=== PATIENT | male | born 2000 ===

== ENCOUNTER 2019-10-16 23:21 | Inpatient (IN) | payer BC, SELFPAY ==
[2019-10-16 23:32] VITALS: BP 131/77; PULSE 73; RESP 16; TEMP 36.8; O2SAT 100; BMI 19.3
[2019-10-16] MEDS: ziprasidone 20 mg/mL SDV IM (23:50)
[2019-10-17 00:18] LABS: Basophils % 0.7 %; Eosinophils # 0.2 10^3/uL (0.0-0.8); Eosinophils % 4.1 %; Hematocrit 39.9 % (42.0-52.0); Hemoglobin 13.7 g/dL (11.7-16.6); Lymphocytes # 1.1 10^3/uL (1.5-6.5); Lymphocytes % 19.3 %; Mean Corpuscular HGB Conc 34.3 g/dL (30.0-36.0); Mean Corpuscular Hemoglobin 28.5 pg (28.0-34.0); Mean Platelet Volume 10.1 fL (7.4-10.4); Monocytes # 0.4 10^3/uL (0.2-0.9); Monocytes % 7.6 %; Neutrophils # 3.94 10^3/uL (1.8-8.0); Neutrophils % 68.1 %; Nucleated Red Blood Cells % 0 %; Platelet Count 283 10^3/cmm (130-400); Red Blood Count 4.81 10^6/uL (4.1-5.3); Red Cell Distribution Width 11.9 % (12.1-15.1); White Blood Count 5.8 10^3/uL (4.5-13.0)
[2019-10-17 00:36] LABS: Alanine Aminotransferase 12 U/L (0-41); Albumin Level 4.4 g/dL (3.5-5.2); Alkaline Phosphatase 70 IU/L (40-130); Anion Gap 12.1 (5-19); Aspartate Amino Transferase 23 U/L (0-40); Blood Urea Nitrogen 14 mg/dL (6-20); Calcium 9.5 mg/dL (8.5-10.5); Carbon Dioxide 25 mmol/L (22-29); Chloride 107 mmol/L (98-107); Globulin 1.9 g/dL (1.3-4.6); Glomerular Filtration Rate 107.6 mL/min (90-130); Glucose 92 mg/dL (65-115); Osmolality Calculated 286 mOsm/kg (285-295); Potassium 4.1 mmol/L (3.5-5.1); Sodium 140 mmol/L (136-145); Total Bilirubin 0.3 mg/dL (0.15-1.2); Total Protein 6.3 g/dL (6.6-8.7)
[2019-10-17 00:51] LABS: Acetaminophen < 5.0 ug/mL (10-30); Alcohol Level < 10 mg/dL (0-10); Salicylate < 0.3 mg/dL (3-10)
[2019-10-17 03:26] VITALS: BP 115/74; PULSE 71; RESP 17; TEMP 36.6; O2SAT 97
[2019-10-17 03:28] VITALS: BP 122/70; PULSE 76; RESP 14; O2SAT 96
[2019-10-17 03:29] VITALS: RESP 16
--- NOTE | 2019-10-17 04:04 | ED_ITS ---
HPI - Psych General: Chief Complaint: Psychiatric Symptoms Stated Complaint: MHE Time Seen by Provider: 10/16/19 23:37 History of Present Illness: HPI Narrative: 18-year-old with feelings of anger. He denies specific homicidal thoughts, but is very vague about his anger. He denies suicidal ideation currently. He wants to be evaluated in the NPU, because he is very angry. He gives the impression that he is worried what he might do because he is angry. MD complaint: feels depressed Onset (ago): day(s) Duration: constant History of same: Yes Relieving factors: none Exacerbating factors: none Associated psychiatric symptoms: depression Associated symptoms: Deny auditory hallucinations or visual hallucinations Review of Systems Const: Denies: fever(s) or chills Eyes: Denies: change in vision or blurry vision ENMT: Denies: swelling of lips/tongue, post nasal drip or sinus pain Card: Denies: chest pain, palpitations, irregular heart rhythm or edema Resp: Denies: dyspnea, productive cough, non-productive cough or wheezing GI: Denies: abdominal pain, nausea or vomiting : Denies: difficulty urinating or hematuria Musc: Denies: neck pain, back pain, joint redness or joint warmth Skin/Breast: Denies: rash Neuro: Denies: headache(s), dizziness or vertigo Psych: Denies: visual hallucinations or auditory hallucinations Physical Exam Const: GENERAL APPEARANCE: cooperative ORIENTATION/CONSCIOUSNESS: Yes oriented to person, Yes oriented to place and Yes oriented to time HENMT: COMMON NORMALS: normocephalic, external ears normal and Normal external nose present HEAD & SCALP: normocephalic FACE & SINUS: normal facial exam NOSE: Normal external nose present and No nasal discharge present EXTERNAL EAR: Yes external ears normal MOUTH: tongue normal Eye: COMMON NORMALS: Equal, round and reactive pupils present, EOMs intact bilaterally and conjunctivae normal EYELID: eyelids normal CONJUNCTIVA: Yes conjunctivae normal PUPIL: Yes Equal, round and reactive pupils present Neck/C-Spine: GENERAL: No tracheal deviation Chest: COMMONS NORMALS: normal inspection of the chest CHEST: No tenderness Resp: COMMON NORMALS: clear to auscultation bilaterally EFFORT & INSPECTION: No tachypneic, No respiratory distress, No retractions, No uses accessory muscles and No tracheal deviation AUSCULTATION: clear to auscultation bilaterally, no rhonchi, no wheezes and lung sounds not diminished Cardio: COMMON NORMALS: regular rate and regular rhythm RATE: regular rate RHYTHM: regular rhythm HEART SOUNDS: no murmurs PERIPHERAL PULSES: radial pulses present GI: INSPECTION: No abdominal distension AUSCULTATION: No Hyperactive bowel sounds present and No Hypoactive bowel sounds present PALPATION: No Guarding due to palpation present (GI) and No Rigid due to palpation PERCUSSION: no dullness to percussion and no tympanic to percussion Neuro: SENSORIUM/ORIENTATION: Yes oriented to person, Yes oriented to place and Yes oriented to time Psych: COMMON NORMALS: speech normal APPEARANCE: Yes grossly normal ATTITUDE: Yes Withdrawn affect present and Yes bizarre ACTIVITY/MOTOR BEHAVIOR: Yes psychomotor slowing and Yes disorganized behavior SPEECH: Yes normal speech MOOD & AFFECT: Yes depressed mood, Yes Flat affect present and Yes Blunted affect present THOUGHT PROCESS: Circumstantial thought process present THOUGHT CONTENT: Yes Depersonalization present INSIGHT: Limited insight present (Psych) JUDGEMENT: Fair judgement present (Psych) Skin: COMMON NORMALS: no rashes or lesions noted GENERAL SKIN EXAM: no rashes or lesions noted MDM - Psych MDM Narrative: Medical decision making narrative: 18-year-old male who was quite bizarre. He will not give a clear history. He reports feelings of anger. He gives the impression he is worried what he might do, so his seeking custodial from these feelings by coming here and requesting to come into the NPU. He feels this is safe. Medically he appears stable. On arrival, he was very on edge, and asked for something to help with this. He was given an injection of Geodon which seemed to help significantly. Lab Data: Labs: Lab Results 10/17/19 10/17/19 Range/Units 00:09 00:09 WBC 5.8 (4.5-13.0) 10^3/ uL RBC 4.81 (4.1-5.3) 10^6/u L Hgb 13.7 (11.7-16.6) g/dL Hct 39.9 L (42.0-52.0) % MCV 83.0 (80-94) fL MCH 28.5 (28.0-34.0) pg MCHC 34.3 (30.0-36.0) g/dL RDW 11.9 L (12.1-15.1) % Plt Count 283 (130-400) 10^3/c mm MPV 10.1 (7.4-10.4) fL Neut % (Auto) 68.1 % Lymph % (Auto) 19.3 % [place] % (Auto) 7.6 % Eos % (Auto) 4.1 % Baso % (Auto) 0.7 % Neut # (Auto) 3.94 (1.8-8.0) 10^3/u L Lymph # (Auto) 1.1 L (1.5-6.5) 10^3/u L [place] # (Auto) 0.4 (0.2-0.9) 10^3/u L Eos # (Auto) 0.2 (0.0-0.8) 10^3/u L Baso # (Auto) 0.0 (0.0-0.1) 10^3/u L Nucleated RBC % (a uto) 0 % Nucleated RBCs # 0.0 /100WBC Sodium 140 (136-145) mmol/L Potassium 4.1 (3.5-5.1) mmol/L Chloride 107 (98-107) mmol/L Carbon Dioxide 25 (22-29) mmol/L Anion Gap 12.1 (5-19) BUN 14 (6-20) mg/dL Creatinine 0.9 (0.7-1.2) mg/dL GFR Calculation 107.6 (90-130) mL/min Glucose 92 (65-115) mg/dL Calculated Osmolal ity 286 (285-295) mOsm/k g Calcium 9.5 (8.5-10.5) mg/dL Total Bilirubin 0.3 (0.15-1.2) mg/dL AST 23 (0-40) U/L ALT 12 (0-41) U/L Alkaline Phosphata se 70 (40-130) IU/L Total Protein 6.3 L (6.6-8.7) g/dL Albumin 4.4 (3.5-5.2) g/dL Globulin 1.9 (1.3-4.6) g/dL Salicylates < 0.3 L (3-10) mg/dL Acetaminophen < 5.0 L (10-30) ug/mL Ethyl Alcohol < 10 (0-10) mg/dL Discharge Plan Discharge Patient Disposition: Admitted As Inpatient Admit Provider: Hema Byrne Clinical Impression: Homicidal thoughts Depression Qualifiers: Depression Type: major depressive disorder Major depression recurrence: recurrent Active/Remission status: currently active Major depression episode severity: severe Psychotic features: with psychotic features Qualified Code(s): F33.3 - Major depressive disorder, recurrent, severe with psychotic symptoms Condition: Stable Discharge Date/Time: 10/17/19 03:30 Coding Level of Care Code ED Votator Machine Operator for Chg Fwd Exam Comprehensive
[2019-10-17 06:00] VITALS: BP 112/70; PULSE 77; RESP 18; TEMP 36.7; O2SAT 99
--- NOTE | 2019-10-17 10:25 | P.HP_ITS ---
Providers/Chief Complaint Admitting Physician: Hema Byrne MD Chief Complaint: MHE HPI NPU History of Present Illness Stu Chamberlain is a 18 year old male who was quite bizarre. He will not give a clear history giving almost nothing but Yep and Nope answers. He reports feelings of anger, which arise when he walks away from people with whom he has been speaking. He believes they are talking about him behind his back. He gives the impression he is worried what he might do, and requested admission to the NPU for safety sake. He is never had any treatment, inpatient or outpatient, for psychiatric disease but affirms that he has had recurrent severe depression. He says he is depressed now. He also affirmed that the injection of Geodon which he was given in the ED seemed to help significantly and he would be happy to go on oral Geodon for these paranoid feelings and Lexapro for his depression. He is never had psychiatric meds before and has no known home medications. Review of Systems Narrative: Const: Denies: fever(s) or chills Eyes: Denies: change in vision or blurry vision ENMT: Denies: swelling of lips/tongue, post nasal drip or sinus pain Card: Denies: chest pain, palpitations, irregular heart rhythm or edema Resp: Denies: dyspnea, productive cough, non-productive cough or wheezing GI: Denies: abdominal pain, nausea or vomiting : Denies: difficulty urinating or hematuria Musc: Denies: neck pain, back pain, joint redness or joint warmth Skin/Breast: Denies: rash Neuro: Denies: headache(s), dizziness or vertigo Psych: Denies: visual hallucinations or auditory hallucinations Meds NPU Home Medications Medication Instructions Recorded Confirmed Last Taken Type No Known Home Medications 10/16/19 10/16/19 Unknown History Allergies Allergy/AdvReac Type Severity Reaction Status Date / Time No Known Allergies Allergy Verified 10/16/19 23:32 PFS NPU PFSH: Social History (Updated 10/17/19 @ 10:39 by Aaron Walker) Alcohol intake: never Substance/Drug Use: never Adopted: No Caregiver/support person: No Lives independently: No Household members: family and other Details: , In his words, blew up when his anger got out of control. Marital status: Single service: No Current occupational status: unemployed Current gender identity: Male Other Psychiatric History: Other Psychiatric History: Patient reports there is no family history of this kind of depression or of paranoia. No one is involved with alcohol or drugs, nor is he. Mental Status Exam MSE Comments: This is a 18-year-old male who presents at his stated age. He is clean and neat. Mood is depressed and affect is flat. He has poor eye contact, with a rather hangdog look. Thought processes are limited but coherent. There is no disorganization or racing or blocking. Speech is limited but easily understood. There is no dysarthria, aprosody or pressure. Cognitive functions seem to be intact and he has a surprising amount of insight, knowing that he was in over his head with his own anger. He denies any desire to hurt himself or anybody else and has no ideation, plan or intent. Vitals/I&O/Wt Last Vital Signs Temp 98.0 F 10/17/19 06:00 Pulse 77 10/17/19 06:00 Resp 18 10/17/19 06:00 BP 112/70 10/17/19 06:00 Pulse Ox 99 10/17/19 06:00 Weight last 48 hrs Weight 118 lb 3.2 oz Weight 120 lb Physical Exam Narrative: EXAM NARRATIVE: Const: GENERAL APPEARANCE: cooperative ORIENTATION/CONSCIOUSNESS: Yes oriented to person, Yes oriented to place and Yes oriented to time HENMT: COMMON NORMALS: normocephalic, external ears normal and Normal exter nal nose present HEAD & SCALP: normocephalic FACE & SINUS: normal facial exam NOSE: Normal external nose present and No nasal discharge present EXTERNAL EAR: Yes external ears normal MOUTH: tongue normal Eye: COMMON NORMALS: Equal, round and reactive pupils present, EOMs intact bilaterally and conjunctivae normal EYELID: eyelids normal CONJUNCTIVA: Yes conjunctivae normal PUPIL: Yes Equal, round and reactive pupils present Neck/C-Spine: GENERAL: No tracheal deviation Chest: COMMONS NORMALS: normal inspection of the chest CHEST: No tenderness Resp: COMMON NORMALS: clear to auscultation bilaterally EFFORT & INSPECTION: No tachypneic, No respiratory distress, No retractions, No uses accessory muscles and No tracheal deviation AUSCULTATION: clear to auscultation bilaterally, no rhonchi, no wheezes and lung sounds not diminished Cardio: COMMON NORMALS: regular rate and regular rhythm RATE: regular rate RHYTHM: regular rhythm HEART SOUNDS: no murmurs PERIPHERAL PULSES: radial pulses present GI: INSPECTION: No abdominal distension AUSCULTATION: No Hyperactive bowel sounds present and No Hypoactive bowel sounds present PALPATION: No Guarding due to palpation present (GI) and No Rigid due to palpation PERCUSSION: no dullness to percussion and no tympanic to percussion Neuro: SENSORIUM/ORIENTATION: Yes oriented to person, Yes oriented to place and Yes oriented to time Psych: COMMON NORMALS: speech normal APPEARANCE: Yes grossly normal ATTITUDE: Yes Withdrawn affect present and Yes bizarre ACTIVITY/MOTOR BEHAVIOR: Yes psychomotor slowing and Yes disorganized behavior SPEECH: Yes normal speech MOOD & AFFECT: Yes depressed mood, Yes Flat affect present and Yes Blunted affect present THOUGHT PROCESS: Circumstantial thought process present THOUGHT CONTENT: Yes Depersonalization present INSIGHT: Limited insight present (Psych) JUDGEMENT: Fair judgement present (Psych) Skin: COMMON NORMALS: no rashes or lesions noted GENERAL SKIN EXAM: no rashes or lesions noted Data NPU : 10/17/19 00:09 10/17/19 00:09 A&P Assessment and plan (1) Depression: Pharmacotherapy with S-Citalopram will be undertaken Status: Acute Qualifiers: Active/Remission status: currently active Depression Type: major depressive disorder Major depression episode severity: severe Major depression recurrence: recurrent Psychotic features: with psychotic features Qualified Code(s): F33.3 - Major depressive disorder, recurrent, severe with psychotic symptoms (2) Paranoia: Pharmacotherapy and milieu will be initiated. Status: Acute Involuntary Hold Information 96 Hour Hold: 96 Hour Involuntary Admission: No Attestations NPU Medical Necessity Statement*: I anticipate 7 to 10 midnights additional hospitalization Time Spent in Patient Care: Greater than 35 minutes (>than 50% of time spent in counselling and/or direct pt care on unit) . 60 minutes spent evaluating, reviewing documents and formulating a treatment plan. Coding Level of Care Code Acute Patient Resource Specialist for Narda Contreras Diagnoses Depression F33.3 Active/Remission status: currently active Depression Type: major depressive disorder Major depression episode severity: severe Major depression recurrence: recurrent Psychotic features: with psychotic features Paranoia F22
[2019-10-17 14:00] VITALS: BP 121/78; PULSE 72; RESP 18; TEMP 36.6; O2SAT 98
[2019-10-17] MEDS: ziprasidone hcl 20 mg Capsule PO (17:08)
[2019-10-17 22:00] VITALS: BP 110/52; PULSE 63; RESP 20; TEMP 37; O2SAT 98
[2019-10-18 06:00] VITALS: BP 117/76; PULSE 81; RESP 20; TEMP 36.6; O2SAT 98
[2019-10-18] MEDS: ziprasidone hcl 20 mg Capsule PO (06:33)
[2019-10-18] MEDS: fluoxetine 10 mg Capsule PO (08:26)
--- NOTE | 2019-10-18 13:22 | P.DS_ITS ---
Diagnoses at Discharge Discharge Diagnosis (1) Depression: Status: Acute Problem details: The patient is responding well to pharmacotherapy. He is being referred for [facility] in [place]. Qualifiers: Active/Remission status: currently active Depression Type: major depressive disorder Major depression episode severity: severe Major depression recurrence: recurrent Psychotic features: with psychotic features Qualified Code(s): F33.3 - Major depressive disorder, recurrent, severe with psychotic symptoms (2) Paranoia: Status: Acute Problem details: This problem appears to be resolving very quickly with pharmacotherapy. Reason for Visit Reason for Visit: [facility] Hospital Course Hospital Course Day 1 diagnosis and formulation of treatment plan was established. The patient likely has psychotic depression. Day 2 the patient responded extremely rapidly to low-dose ziprasidone and has been given Prozac 10 mg daily, to which there has not been time for him to respond. Discharge Summary This 18-year-old male came in with intense rage was so acute that he was worried about what he might do. He was given the opportunity to be involved in milieu and receive pharmacotherapy. His mood changed overnight and he is convinced that the ziprasidone 20 mg twice daily is the causal agent. Involuntary Hold Information 96 Hour Hold: 96 Hour Involuntary Admission: No Mental Status Exam MSE Comments: This is a 18-year-old male who presents at his stated age. Mood is far brighter today and affect is appropriate. Thought processes are integrated and free of any racing, blocking are looseness of association. There is no evidence of psychosis, such as but not limited to hallucinations, delusions or ideas of reference. Speech is of normal rate and volume, without dysarthria, aprosody or pressure. Cognitive functions are intact and insight and judgment appear to be adequate. The patient denies suicidal and homicidal ideation, plan or intent. Physical Exam Narrative: EXAM NARRATIVE: onst: GENERAL APPEARANCE: cooperative ORIENTATION/CONSCIOUSNESS: Yes oriented to person, Yes oriented to place and Yes oriented to time HENMT: COMMON NORMALS: normocephalic, external ears normal and Normal external nose present HEAD & SCALP: normocephalic FACE & SINUS: normal facial exam NOSE: Normal external nose present and No nasal discharge present EXTERNAL EAR: Yes external ears normal MOUTH: tongue normal Eye: COMMON NORMALS: Equal, round and reactive pupils present, EOMs intact bilaterally and conjunctivae normal EYELID: eyelids normal CONJUNCTIVA: Yes conjunctivae normal PUPIL: Yes Equal, round and reactive pupils present Neck/C-Spine: GENERAL: No tracheal deviation Chest: COMMONS NORMALS: normal inspection of the chest CHEST: No tenderness Resp: COMMON NORMALS: clear to auscultation bilaterally EFFORT & INSPECTION: No tachypneic, No respiratory distress, No retractions, No uses accessory muscles and No tracheal deviation AUSCULTATION: clear to auscultation bilaterally, no rhonchi, no wheezes and lung sounds not diminished Cardio: COMMON NORMALS: regular rate and regular rhythm RATE: regular rate RHYTHM: regular rhythm HEART SOUNDS: no murmurs PERIPHERAL PULSES: radial pulses present GI: INSPECTION: No abdominal distension AUSCULTATION: No Hyperactive bowel sounds present and No Hypoactive bowel sounds present PALPATION: No Guarding due to palpation present (GI) and No Rigid due to palpation PERCUSSION: no dullness to percussion and no tympanic to percussion Neuro: SENSORIUM/ORIENTATION: Yes oriented to person, Yes oriented to place and Yes oriented to time Psych: COMMON NORMALS: speech normal APPEARANCE: Yes grossly normal ATTITUDE: Yes Withdrawn affect present and Yes bizarre ACTIVITY/MOTOR BEHAVIOR: Yes psychomotor slowing and Yes disorganized behavior SPEECH: Yes normal speech MOOD & AFFECT: Yes depressed mood, Yes Flat affect present and Yes Blunted affect present THOUGHT PROCESS: Circumstantial thought process present THOUGHT CONTENT: Yes Depersonalization present INSIGHT: Limited insight present (Psych) JUDGEMENT: Fair judgement present (Psych) Skin: COMMON NORMALS: no rashes or lesions noted GENERAL SKIN EXAM: no rashes or lesions noted Discharge Data Vitals: Last Vital Signs Temp 97.9 F 10/18/19 06:00 Pulse 81 10/18/19 06:00 Resp 20 H 10/18/19 06:00 BP 117/76 10/18/19 06:00 Pulse Ox 98 10/18/19 06:00 Discharge Plan Discharge Patient Disposition: Home, Self-Care Condition: Stable Prescriptions: New ziprasidone HCl 20 mg Capsule 20 mg PO 0700,1700 30 Days Qty: 60 RF: 2 fluoxetine 10 mg Capsule 10 mg PO DAILY 30 Days Qty: 30 RF: 1 No Action No Known Home Medications RF: 0 Discharge Orders: Discharge Order (Routine); Ordered 10/18/19 Ordered By: Aaron N Aaron Discharge Diet: Usual diet Discharge Activity: Resume usual activity Discharge Attestations NPU Time Spent in Discharge Care*: greater than 30 min Specific Discharge Activities: Specific discharge activities: educating patient, discussing with therapeutic case manager/social workers/dc planners, documenting/other paperwork and evaluating patient/reviewing data Status at Discharge: Cognitive status at discharge: cognitively intact , Behavioral status at discharge: cooperative , Functional status at discharge: independent ambulation Overall status at discharge: patient is back to baseline Coding Level of Care Code Acute Remote Computer Terminal Operator for [facility] Fwd Diagnoses Depression F33.3 Active/Remission status: currently active Depression Type: major depressive disorder Major depression episode severity: severe Major depression recurrence: recurrent Psychotic features: with psychotic features Paranoia F22
[2019-10-18 14:38] VITALS: BP 117/76; PULSE 81; RESP 20; TEMP 36.6; O2SAT 98
== END 2019-10-18 15:36 | disposition home or self-care (01) | DRG 885 ==
LOC: ER 10-17 00:31 → NP 10-17 02:11
PROVIDERS: Emergency Medicine; Admitting Provider Psychiatry & Neurology Psychiatry; Visit Provider Psychiatry & Neurology Psychiatry
DX: F33.3 Major depressive disorder, recurrent, severe with psychotic symptoms (principal)
CPT/HCPCS: 12345; 80053; 80307; 85025; 96372; 99284; J3486

== ENCOUNTER 2019-11-19 16:04 | Emergency (ER) | payer BC, MEDICAID, SELFPAY ==
[2019-11-19 16:09] VITALS: BP 136/80; PULSE 79; RESP 16; TEMP 36.7; O2SAT 100; BMI 22.1
[2019-11-19 16:16] VITALS: PULSE 73; RESP 16; O2SAT 99
--- NOTE | 2019-11-19 16:21 | CTR_ITS ---
PROCEDURE INFORMATION: Exam: CT Head Without Contrast Exam date and time: 11/19/2019 4:25 PM Age: 19 years old Clinical indication: Injury or trauma; Initial encounter; Laceration; Without loss of consciousness; Without residual foreign body; Scalp; Patient HX: Fall from moving mower -loc lac to back of head; Additional info: Fall, head injury TECHNIQUE: Imaging protocol: Computed tomography of the head without contrast. Radiation optimization: All CT scans at this facility use at least one of these dose optimization techniques: automated exposure control; mA and/or kV adjustment per patient size (includes targeted exams where dose is matched to clinical indication); or iterative reconstruction. COMPARISON: No relevant prior studies available. RADIATION DOSE METRICS: Total DLP (mGy-cm): 768.12 FINDINGS: Brain: There is trace thickening/hyperdensity along the left tentorium compared to the right that may reflect congenital variation versus a trace amount of left subdural hemorrhage. No additional acute hemorrhage. No edema or mass effect. Ventricles: Normal. No ventriculomegaly. Bones/joints: There is patchy opacification left mastoid air cells and there is a nondisplaced fracture of the left occipital/temporal bone extending into the left mastoid air cells. No additional calvarial fracture. Sinuses: There is trace mucosal thickening in the sinuses. Mastoid air cells: There is pneumocephalus just medial to the left mastoid air cells and in the left occipital fossa. The right mastoid air cells are clear. Soft tissues: There is a scalp hematoma overlying the left frontal/parietal bone. There is subcutaneous emphysema adjacent to the left mastoid bone. CT/CT head wo con* [id number] IMPRESSION: 1. There is a scalp hematoma overlying the left frontal/parietal bone. 2. Nondisplaced fracture of the left temporal/occipital bone extending into the left mastoid air cells with pneumocephalus and subcutaneous emphysema. 3. There is trace asymmetry versus thickening/hyperdensity along the left tentorium compared to the right that may reflect congenital variation versus a trace amount of left subdural hemorrhage. No additional acute hemorrhage. 4. No edema or mass effect. Radiation Dose CTDIVOL = (mGy): DLP = 768.12 (mGy-cm)
--- NOTE | 2019-11-19 16:21 | W.ED.FALL ---
HPI - Fall General: Chief Complaint: Fall Stated Complaint: laceration to head/ road rash Time Seen by Provider: 11/19/19 16:13 History of Present Illness: HPI Narrative: Patient was riding on a stand-up lawnmower and a bucked him off the knee hit his head on some concrete and has a laceration to his head and some abrasions to his shoulder and face. Patient did arrive by ambulance Tetanus is up-to-date MD complaint: fall Onset (ago): minute(s) Fall from: other (Stand up 1 more) Fall witnessed: yes, by bystander Place fall occurred: work Loss of consciousness: None Prolonged down time: no Symptoms prior to fall: none Context: tripped/slipped Location of injury: head and face Location of injury - extremities: Right: shoulder Associated symptoms-after fall: Denies abdominal pain, chest pain or headache(s) Review of Systems Narrative: Patient is understand upright in 1 more working and when he got bucked off of and hit some concrete Const: Denies: fever(s), chills or body aches Eyes: Denies: change in vision or blurry vision ENMT: Denies: throat pain or nasal congestion Card: Denies: chest pain or dyspnea on exertion Resp: Denies: dyspnea, productive cough or non-productive cough GI: Denies: abdominal pain, nausea or vomiting : Denies: difficulty urinating Musc: Denies: extremity pain Skin/Breast: Reports: other (Abrasion to right cheek and abrasion to right shoulder laceration to top of scalp parietal left side); Denies: rash Neuro: Denies: headache(s) Psych: Denies: anxiety or depression Alfa/Lymph: Denies: easy bruising PFS ED PFSH: Social History (Updated 10/17/19 @ 10:39 by Aaron Walker) Alcohol intake: never Adopted: No Caregiver/support person: No Lives independently: No Household members: family and other Details: , In his words, blew up when his anger got out of control. Marital status: Single service: No Current occupational status: unemployed Current gender identity: Male Physical Exam Const: COMMON NORMALS: no acute distress, average body habitus and patient oriented x3 HENMT: COMMON NORMALS: normocephalic HEAD & SCALP: normal to inspection and normocephalic FACE & SINUS: other (Patient has bruising swelling to the right upper cheek area of bruising below the eye to right side tender to the touch does have an abrasion on the right uatsdin area) Eye: COMMON NORMALS: conjunctivae normal GENERAL EYE: appearance normal, both eyes and all related structures CONJUNCTIVA: Yes conjunctivae normal Neck/C-Spine: COMMON NORMALS: no JVD Chest: COMMONS NORMALS: normal inspection of the chest Resp: COMMON NORMALS: normal respiratory effort and clear to auscultation bilaterally AUSCULTATION: clear to auscultation bilaterally Cardio: COMMON NORMALS: no JVD, regular rate and regular rhythm RATE: regular rate RHYTHM: regular rhythm GI: COMMON NORMALS: Normal to inspection, nondistended, normoactive bowel sounds present Extremity: COMMON NORMALS: normal to inspection and full ROM RIGHT UPPER EXTREMITY: Yes shoulder joint (No pain with range of motion full range of motion noted) Neuro: COMMON NORMALS: patient oriented x3, CN's II-XII intact bilaterally, moves all extremities and no focal motor deficits Skin: NARRATIVE SKIN EXAM: Large skin abrasion avulsion right shoulder and has mild abrasion to right cheek area and then has a laceration left parietal area scalp puncture wound no active bleeding presently Course Vital Signs: Vital signs: Vital Signs Temperature 98.1 F 11/19/19 16:09 Pulse Rate 73 11/19/19 16:16 Respiratory Rate 16 11/19/19 16:16 Blood Pressure 136/80 11/19/19 16:09 Pulse Oximetry 99 11/19/19 16:16 Discharge Plan Discharge Prescriptions: No Action No Known Home Medications RF: 0 ziprasidone HCl 20 mg Capsule 20 mg PO 0700,1700 30 Days Qty: 60 RF: 2 fluoxetine 10 mg Capsule 10 mg PO DAILY 30 Days Qty: 30 RF: 1 Coding Level of Care Code ED Edging Machine Feeder for Chg Fwd Exam Comprehensive
--- NOTE | 2019-11-19 16:22 | XRR_ITS ---
PROCEDURE INFORMATION: Exam: XR Right Shoulder Exam date and time: 11/19/2019 4:40 PM Age: 19 years old Clinical indication: Injury or trauma; Fall; Initial encounter; Blunt trauma (contusions or hematomas; Right; Injury date: Today; Patient HX: PT fell off mower and hit RT shoulder. C/O pain RT shoulder TECHNIQUE: Imaging protocol: XR Right shoulder. Views: 2 or more views. COMPARISON: No relevant prior studies available. FINDINGS: Bones/joints: There is no acute fracture or dislocation. The acromioclavicular joint alignment is appropriate. The subacromial joint space is well-preserved. The glenohumeral joint is unremarkable. There is a probable nondisplaced fracture of the lateral aspect of the right 2nd rib. There is a lucent line in the neck of the scapula has a serpiginous appearance and is a probable nutrient vascular channel. Lungs: The visualized lung apex is clear. Soft tissues: No calcific tendinopathy. XR/XR shoulder RT min 2V* [id number] IMPRESSION: 1. There is a probable nondisplaced fracture of the lateral aspect of the right 2nd rib. 2. No acute fracture of the humerus scapula or clavicle. The glenohumeral joint alignment and acromioclavicular joint alignment is intact.
[2019-11-19 17:00] VITALS: BP 135/86; PULSE 78; RESP 16; O2SAT 99
--- NOTE | 2019-11-19 17:06 | XRR_ITS ---
PROCEDURE INFORMATION: Exam: XR Chest, 1 View Exam date and time: 11/19/2019 5:24 PM Age: 19 years old Clinical indication: Chest pain; Additional info: Cp TECHNIQUE: Imaging protocol: XR of the chest Views: 1 view. COMPARISON: No relevant prior studies available. FINDINGS: Lungs: Unremarkable. No consolidation. Pleural space: Unremarkable. No pleural effusion. No pneumothorax. Heart/Mediastinum: Unremarkable. No cardiomegaly. Bones/joints: No acute abnormality. XR/XR chest 1V portable [id number] IMPRESSION: No acute findings.
--- NOTE | 2019-11-19 17:16 | PC.NURSE ---
WHILE ATBEDSIDE PT IS IN NAD. PT IS ANSWERING QUESTIONS APPROPRIATELY WITH NO CHANGE IN MENTATION.
[2019-11-19 17:22] LABS: Basophils # 0.1 10^3/uL (0.0-0.1); Basophils % 0.4 %; Eosinophils # 0.1 10^3/uL (0.0-0.8); Eosinophils % 0.5 %; Hematocrit 45.2 % (42.0-52.0); Hemoglobin 15.4 g/dL (11.7-16.6); Lymphocytes % 6.7 %; Mean Corpuscular HGB Conc 34.1 g/dL (30.0-36.0); Mean Corpuscular Hemoglobin 28.4 pg (28.0-34.0); Mean Corpuscular Volume 83.2 fL (80-94); Monocytes # 0.9 10^3/uL (0.2-0.9); Neutrophils # 13.25 10^3/uL (1.8-7.7); Neutrophils % 85.9 %; Nucleated Red Blood Cells % 0 %; Platelet Count 294 10^3/cmm (130-400); Red Blood Count 5.43 10^6/uL (4.1-5.3); Red Cell Distribution Width 12.2 % (12.1-15.1); White Blood Count 15.4 10^3/uL (4.0-10.0)
[2019-11-19 17:30] VITALS: BP 142/89; PULSE 81; RESP 16; O2SAT 100
--- NOTE | 2019-11-19 17:40 | PC.NURSE ---
REPORT GIVEN TO MARY BORJAS WITH [facility].
[2019-11-19 17:43] LABS: Alanine Aminotransferase 37 U/L (0-41); Albumin Level 4.7 g/dL (3.5-5.2); Alkaline Phosphatase 68 IU/L (40-130); Anion Gap 13.9 (5-19); Aspartate Amino Transferase 41 U/L (0-40); Blood Urea Nitrogen 14 mg/dL (6-20); Calcium 9.3 mg/dL (8.5-10.5); Carbon Dioxide 26 mmol/L (22-29); Chloride 103 mmol/L (98-107); Globulin 2.1 g/dL (1.3-4.6); Glomerular Filtration Rate 94.3 mL/min (90-130); Glucose 107 mg/dL (65-115); Osmolality Calculated 285 mOsm/kg (285-295); Potassium 3.9 mmol/L (3.5-5.1); Sodium 139 mmol/L (136-145); Total Bilirubin 0.6 mg/dL (0.15-1.2); Total Protein 6.8 g/dL (6.6-8.7)
[2019-11-19 18:36] LABS: INR 0.95 (0.8-1.2)
== END 2019-11-19 18:01 | disposition other institution (70) ==
PROVIDERS: Emergency Provider Emergency Medicine
DX: S01.01XA Laceration without foreign body of scalp, initial encounter (principal); S00.81XA Abrasion of other part of head, initial encounter; S40.211A Abrasion of right shoulder, initial encounter; W31.89XA Contact with other specified machinery, initial encounter
CPT/HCPCS: 12345; 70450; 71045; 73030; 80053; 85025; 85610; 99282; 99283

== ENCOUNTER → 2019-12-14 14:30 | Outpatient (BNVA) | payer BC, SELFPAY | PROVIDERS: Visit Provider Psychiatry & Neurology Psychiatry | DX: F63.81 Intermittent explosive disorder (principal); F33.9 Major depressive disorder, recurrent, unspecified; F17.200 Nicotine dependence, unspecified, uncomplicated | CPT/HCPCS: 99204 ==

== ENCOUNTER → 2020-01-11 08:28 | Outpatient (BNVA) | payer BC, SELFPAY | PROVIDERS: Visit Provider Psychiatry & Neurology Psychiatry | DX: F33.9 Major depressive disorder, recurrent, unspecified (principal); F63.81 Intermittent explosive disorder; F17.200 Nicotine dependence, unspecified, uncomplicated | CPT/HCPCS: 99213 ==

== ENCOUNTER → 2020-02-22 07:55 | Outpatient (BNVA) | payer BC, SELFPAY | PROVIDERS: Visit Provider Psychiatry & Neurology Psychiatry | DX: F33.9 Major depressive disorder, recurrent, unspecified (principal); F63.81 Intermittent explosive disorder; F17.200 Nicotine dependence, unspecified, uncomplicated | CPT/HCPCS: 99213 ==

== ENCOUNTER → 2020-04-26 08:06 | Outpatient (BNVA) | payer SELFPAY | PROVIDERS: Visit Provider Psychiatry & Neurology Psychiatry | DX: F33.9 Major depressive disorder, recurrent, unspecified (principal); F63.81 Intermittent explosive disorder; F17.200 Nicotine dependence, unspecified, uncomplicated | CPT/HCPCS: 99214 ==

== ENCOUNTER → 2020-07-14 10:00 | Outpatient (BNVA) | payer BC, SELFPAY | PROVIDERS: Visit Provider Psychiatry & Neurology Psychiatry | DX: F33.9 Major depressive disorder, recurrent, unspecified (principal); F63.81 Intermittent explosive disorder; F17.200 Nicotine dependence, unspecified, uncomplicated | CPT/HCPCS: 99213 ==

== ENCOUNTER 2023-10-26 14:37 | Emergency (ER) | payer BC, SELFPAY ==
[2023-10-26 14:39] VITALS: BP 163/97; PULSE 111; RESP 18; TEMP 36.5; O2SAT 98
--- NOTE | 2023-10-26 14:42 | ECG_ITS ---
[facility] Test Date: 2023-10-26 Pat Name: Stu Chamberlain Department: Room: Gender: Male [employer] Former: : 2000 Requested By: Marley Kraft Order Number: [id number] Y[place]asta MD: Facundo Mao M.D. Measurements Intervals [place] Rate: 106 P: 52 WA: 164 QRS: 58 QRSD: 105 T: 14 QT: 312 QTc: 414 Interpretive Statements SINUS TACHYCARDIA WITH OCCASIONAL VENTRICULAR PREMATURE COMPLEXES POSSIBLE LEFT ATRIAL ENLARGEMENT [-0.1mV P-WAVE IN V1/V2] INCOMPLETE RIGHT BUNDLE BRANCH BLOCK [90+ ms QRS DURATION, TERMINAL R IN V1/V2, 40+ ms S IN I/aVL/V4/V5/V6] NONSPECIFIC T-WAVE ABNORMALITY ABNORMAL RHYTHM ECG No previous ECG available for comparison Electronically Signed On 10-26-2023 15:29:09 CDT by Facundo Mao M.D. [email or web address]
--- NOTE | 2023-10-26 14:42 | XRR_ITS ---
PROCEDURE INFORMATION: Exam: XR Chest Exam date and time: 10/26/2023 3:22 PM Age: 23 years old Clinical indication: Other: Syncope TECHNIQUE: Imaging protocol: Radiologic exam of the chest. Views: 1 view. COMPARISON: CR XR chest 1V portable [id number] 11/19/2019 5:14 PM FINDINGS: Lungs: Unremarkable. No consolidation. Pleural spaces: Unremarkable. No pleural effusion. No pneumothorax. Heart/Mediastinum: Unremarkable. No cardiomegaly. Bones/joints: Unremarkable. XR/XR chest 1V portable [id number] IMPRESSION: No acute findings.
--- NOTE | 2023-10-26 14:43 | W.ED.SYNCOPE ---
HPI - Syncope General: Chief Complaint: Syncope Stated Complaint: SYNCOPE Time Seen by Provider: 10/26/23 14:38 History of Present Illness: 23-year-old male with a history of psychiatric/anger issues who presents to the emergency room after having a syncopal episode while at work. He works at a local fast food restaurant. He says he does not remember the episode. He says he was feeling fine before hand. He has not had any fevers. No cough. No chest pain. No abdominal pain. No nausea or vomiting. No lower extremity swelling. He is a bit diaphoretic on presentation. It appears he may have gotten overheated while outside. He says he feels fine now. No new symptoms. He says he feels a little bit weak at this time. Review of Systems Narrative: Constitutional symptoms: Negative except as documented in HPI. Skin symptoms: Negative except as documented in HPI. Eye symptoms: Negative except as documented in HPI. ENMT symptoms: Negative except as documented in HPI. Respiratory symptoms: Negative except as documented in HPI. Cardiovascular symptoms: Negative except as documented in HPI. Gastrointestinal symptoms: Negative except as documented in HPI. Genitourinary symptoms: Negative except as documented in HPI. Musculoskeletal symptoms: Negative except as documented in HPI. Neurologic symptoms: Negative except as documented in HPI. Psychiatric symptoms: Negative except as documented in HPI. Endocrine symptoms: Negative except as documented in HPI. [facility] ED PFSH: Medical History (Updated 10/26/23 @ 15:52 by Marley Toth MD) Psychiatric care Nicotine dependence, unspecified, uncomplicated Social History (Updated 02/20/22 @ 10:02 by Tanvir Moore LPN) Smoking and tobacco/nicotine status: former use of tobacco/nicotine Quit status (tobacco/nicotine): has quit using Year quit tobacco: 03/2021 Second hand smoke exposure: No Alcohol intake: current Alcohol intake frequency: holidays/special occasions only Alcohol type: beer and hard liquor Substance/Drug Use: never Adopted: No Caregiver/support person: No Lives independently: No Household members: family and other Details: , In his words, blew up when his anger got out of control. Marital status: Single service: No Current occupational status: unemployed Current gender identity: Male Physical Exam Narrative: EXAM NARRATIVE: General: Alert, no acute distress. Skin: Warm, diaphoretic. Head: Normocephalic, atraumatic. Neck: Supple, trachea midline. Eye: Extraocular movements are intact. Ears, nose, mouth and throat: mucosa moist. Cardiovascular: Regular, Normal peripheral perfusion. Respiratory: Lungs are clear to auscultation, respirations are non-labored, breath sounds are equal, Symmetrical chest wall expansion. Gastrointestinal: Soft, Nontender, Non distended Musculoskeletal: Normal ROM, no deformity. Neurological: Alert and oriented, No focal neurological deficit observed. Psychiatric: Cooperative, appropriate mood & affect. Course Vital Signs: Vital signs: Vital Signs Temperature 97.7 F 10/26/23 14:39 Pulse Rate 98 10/26/23 14:55 Respiratory Rate 18 10/26/23 14:39 Blood Pressure 163/97 10/26/23 14:55 Pulse Oximetry 97 10/26/23 14:55 Oxygen Delivery Me thod Room Air 10/26/23 14:39 MDM - Syncope Medical Decision Making Medical decision making: Differential diagnosis including but not limited to and based on the above HPI, review of systems and physical exam in this patient with syncope: Vasovagal, orthostatics hypotension, cardiac dysrhythmia, myocardial infarction, infection and hypotension, Orders placed to evaluate differential diagnosis based on the above differential, HPI and physical exam EKG: Time 1440. Rate 106. PVCs. Sinus tachycardia, No ST-T changes, normal WI & QRS intervals, This was reviewed and interpreted by myself the ER physician at 1445. Chest x-ray: No acute process. No infiltrate. No pneumothorax. This was reviewed and interpreted by myself the ER physician. Lab Review: Laboratory results were reviewed and interpreted by myself the emergency room physician. Lab work is unremarkable. No leukocytosis. No anemia. No renal failure. D-dimer is negative. I reviewed the patient's medical record. Reexamination: Patient says he still feels fine. Heart rate has come down. Blood pressure still slightly elevated. No increased work of breathing. No altered mental status. No focal motor deficits. Seems he may have gotten overheated while at work and had a syncopal episode. Assessment and plan: Syncope. - Discharged home - Discussed findings and plan with patient. Answered any questions. - All laboratory values were reviewed and interpreted personally by myself, the ER physician - All imaging was reviewed and interpreted personally by myself, the ER physician. - Evaluation and treatment of this problem were appropriate in the emergency setting Lab Data 10/26/23 15:15 10/26/23 15:15 Laboratory Results WBC 7.65 10^3/uL (3.29-11.43) 10/26/23 15:15 RBC 4.61 10^6/uL (3.85-5.65) 10/26/23 15:15 Hgb 13.60 g/dL (11.27-16.99) 10/26/23 15:15 Hct 39.3 % (37-53) 10/26/23 15:15 MCV 85.2 fl (82-101) 10/26/23 15:15 MCH 29.5 pg (27-33) 10/26/23 15:15 MCHC 34.6 g/dL (30-55) 10/26/23 15:15 RDW 12.4 % (12.1-15.1) 10/26/23 15:15 Plt Count 298 10^3/cmm (157-399) 10/26/23 15:15 MPV 10.1 fL (7.4-10.4) 10/26/23 15:15 Neut % (Auto) 71.2 % 10/26/23 15:15 Lymph % (Auto) 19.9 % 10/26/23 15:15 Kaufman % (Auto) 5.8 % 10/26/23 15:15 Eos % (Auto) 2.2 % 10/26/23 15:15 Baso % (Auto) 0.5 % 10/26/23 15:15 Neut # (Auto) 5.45 10^3/uL (1.8-7.7) 10/26/23 15:15 Lymph # (Auto) 1.5 10^3/uL (0.8-4.8) 10/26/23 15:15 Kaufman # (Auto) 0.4 10^3/uL (0.2-0.9) 10/26/23 15:15 Eos # (Auto) 0.2 10^3/uL (0.0-0.8) 10/26/23 15:15 Baso # (Auto) 0.0 10^3/uL (0.0-0.1) 10/26/23 15:15 Nucleated RBC % (auto) 0 % 10/26/23 15:15 Nucleated RBCs # 0.0 /100WBC 10/26/23 15:15 D-Dimer 0.42 ug/mLFEU (0-0.59) 10/26/23 15:15 Sodium 140 mmol/L (136-145) 10/26/23 15:15 Potassium 3.8 mmol/L (3.5-5.1) 10/26/23 15:15 Chloride 104 mmol/L (98-107) 10/26/23 15:15 Carbon Dioxide 23 mmol/L (22-29) 10/26/23 15:15 Anion Gap 16.8 (5-19) 10/26/23 15:15 BUN 12 mg/dL (6-20) 10/26/23 15:15 Creatinine 1.1 mg/dL (0.7-1.2) 10/26/23 15:15 GFR Calculation 81.6 mL/min (90-130) L 10/26/23 15:15 Glucose 100 mg/dL (65-115) 10/26/23 15:15 Calculated Osmolality 290 mOsm/kg (285-295) 10/26/23 15:15 Lactic Acid 2.0 mmol/L (0.5-2.2) 10/26/23 15:15 Calcium 9.4 mg/dL (8.5-10.5) 10/26/23 15:15 Total Bilirubin 0.3 mg/dL (0.15-1.2) 10/26/23 15:15 AST 17 U/L (0-40) 10/26/23 15:15 ALT 14 U/L (0-41) 10/26/23 15:15 Alkaline Phosphatase 80 U/L (40-130) 10/26/23 15:15 C-Reactive Protein 3.0 mg/L (0.0-4.9) 10/26/23 15:15 Total Protein 6.9 g/dL (6.6-8.7) 10/26/23 15:15 Albumin 4.4 g/dL (3.5-5.2) 10/26/23 15:15 Globulin 2.5 g/dL (1.3-4.6) 10/26/23 15:15 All radiology interpretation(s) finalized by discharge Discharge Plan Discharge Patient Disposition: Home Clinical Impression: Syncope Qualifiers: Syncope type: unspecified Qualified Code(s): R55 - Syncope and collapse Condition: Stable Prescriptions: No Action fluoxetine 20 mg capsule 60 mg PO DAILY Qty: 180 0RF Discharge Orders: Discharge ED (Routine); Ordered 10/26/23 Ordered By: Marley Toth Discharge Diet: As Directed Discharge Activity: Increase activity as tolerated Patient Instructions: Syncope (ED) Activity Restrictions/Additional Instructions: Thank you for choosing [facility] for your healthcare needs today. Please realize this is an emergency room and that we are providing you with a medical screening exam and this may not be complete and all inclusive of all the testing and or work up that you may need to determine your ailment or severity of your illness. You have been screened and evaluated and felt safe for discharge. Health conditions do change or evolve sometimes and as such it is important that you follow up with your Primary Doctor to be re checked, 3-5 days is a general good time frame for follow up. You are always welcome to return to the ED for re assessment if your symptoms are worsening or you have new concerns Coding Level of Care Code ED Director [facility] for Narda Contreras
[2023-10-26 14:55] VITALS: BP 163/97; PULSE 98; O2SAT 97
[2023-10-26 15:20] LABS: Basophils % 0.5 %; Eosinophils # 0.2 10^3/uL (0.0-0.8); Eosinophils % 2.2 %; Hematocrit 39.3 % (37-53); Lymphocytes # 1.5 10^3/uL (0.8-4.8); Lymphocytes % 19.9 %; Mean Corpuscular HGB Conc 34.6 g/dL (30-55); Mean Corpuscular Hemoglobin 29.5 pg (27-33); Mean Corpuscular Volume 85.2 fl (82-101); Mean Platelet Volume 10.1 fL (7.4-10.4); Monocytes # 0.4 10^3/uL (0.2-0.9); Monocytes % 5.8 %; Neutrophils # 5.45 10^3/uL (1.8-7.7); Neutrophils % 71.2 %; Nucleated Red Blood Cells % 0 %; Platelet Count 298 10^3/cmm (157-399); Red Blood Count 4.61 10^6/uL (3.85-5.65); Red Cell Distribution Width 12.4 % (12.1-15.1); White Blood Count 7.65 10^3/uL (3.29-11.43)
[2023-10-26 15:38] LABS: D Dimer 0.42 ug/mLFEU (0-0.59)
[2023-10-26 15:44] LABS: Alanine Aminotransferase 14 U/L (0-41); Albumin Level 4.4 g/dL (3.5-5.2); Alkaline Phosphatase 80 U/L (40-130); Anion Gap 16.8 (5-19); Aspartate Amino Transferase 17 U/L (0-40); Blood Urea Nitrogen 12 mg/dL (6-20); Calcium 9.4 mg/dL (8.5-10.5); Carbon Dioxide 23 mmol/L (22-29); Chloride 104 mmol/L (98-107); Globulin 2.5 g/dL (1.3-4.6); Glomerular Filtration Rate 81.6 mL/min (90-130); Glucose 100 mg/dL (65-115); Osmolality Calculated 290 mOsm/kg (285-295); Potassium 3.8 mmol/L (3.5-5.1); Sodium 140 mmol/L (136-145); Total Bilirubin 0.3 mg/dL (0.15-1.2); Total Protein 6.9 g/dL (6.6-8.7)
== END 2023-10-26 16:03 | disposition home or self-care (01) ==
PROVIDERS: Emergency Provider Emergency Medicine
DX: R55 Syncope and collapse (principal); R00.0 Tachycardia, unspecified; I49.3 Ventricular premature depolarization; Z87.891 Personal history of nicotine dependence
CPT/HCPCS: 36415; 71045; 80053; 83605; 85025; 85378; 86140; 93005; 99285